=== PATIENT | female | born 1965 | race African-American/Black ===

== ENCOUNTER 2018-06-25 02:18 | Emergency (ER) | payer OTHER ==
[2018-06-25] MEDS ORDERED: SODIUM CHLORIDE FOR INHALATION 3 ML VIAL.NEB IH ONE (02:52)
[2018-06-25 02:53] VITALS: BP 109/71; PULSE 79; TEMP 98.2; BMI 30.7
--- NOTE | 2018-06-25 02:53 | PDOC ---
History of Present Illness - General Stated Complaint: COUGHING,RASH, WHEEZING Time Seen by Provider: 06/25/18 02:39 - History of Present Illness Initial Comments: 06/25/18 03:50 The patient is a 52 year old female, with a significant past medical history of MVP, who presents to the emergency department with 3 weeks of cough and wheezing. As per patient, she was exposed to mold at work. She [place] and states that [place] the [place] due to mold recently. Since finding out, she reports cough, wheezing, and increased anxiety and believes it may be due to the mold. She went to the Urgent Care at [facility] 2 weeks ago and was prescribed Benzonatate. She went to an unknown ER a few days later and was given 2 DuoNeb treatments and prescribed Prednisone for 5 days. She reports her symptoms have not subsided. She also reports noticing specks of brown blood in her sputum last week after a coughing episode. This has not occurred since. She has an appointment with a spool winder on Sunday 07/01. Pt reports last occupational PPD 1 month ago was negative. She denies recent fevers, chills, headache or dizziness. She denies recent nausea, vomit, diarrhea or constipation. She denies recent dysuria, frequency, urgency or hematuria. She denies recent chest pain. Allergies: Pneumococcal vaccine. Past surgical history: None reported. Social history: Nonsmoker. Denies EtOH use and recreational drug use. Past History - Past Medical History Allergies/Adverse Reactions: Allergies Allergy/AdvReac Type Severity Reaction Status Date / Time pneumococcal vaccine Allergy Severe Hives Verified 06/25/18 02:51 Home Medications: Ambulatory Orders Biotin 1 each PO DAILY 04/24/16 Cholecalciferol (Vitamin D3) [Vitamin D] 1 each PO DAILY 04/24/16 Cyanocobalamin [Vitamin B12 -] 1,000 mcg PO DAILY 04/24/16 Ferrous Gluconate [Iron] 325 mg PO DAILY 04/24/16 Meloxicam [Mobic] 1 each PO DAILY 04/24/16 Metoprolol Succinate [Toprol Xl -] 25 mg PO DAILY PRN 04/24/16 Multivitamins [Tab-A-Vit -] 1 tab PO DAILY 04/24/16 [place]-3 Fatty Acids [Fish Oil] 300 mg PO DAILY 07/19/16 Omeprazole 20 mg PO PRN PRN 04/24/16 Hydrocodone/Acetaminophen [Hydrocodon-Acetaminophen 5-300] 1 each PO DAILY PRN 04/30/16 Oxycodone HCl/Acetaminophen [Percocet 5-325 mg Tablet] 1 tab PO Q6H #20 tablet MDD 4 05/01/16 Anemia: Yes (HX OF) Asthma: No Cancer: No Cardiac Disorders: Yes (HX MVP AND PALPITATIONS-TAKES METOPROLOL PRN) CVA: No COPD: No CHF: No Dementia: No Diabetes: Yes (BORDERLINE) GI Disorders: Yes (HX OF GERD) Disorders: No HTN: No Hypercholesterolemia: No Liver Disease: No Seizures: No Thyroid Disease: No - Surgical History Abdominal Surgery: No Appendectomy: No Cardiac Surgery: No Cholecystectomy: Yes (2007) Lung Surgery: No Neurologic Surgery: No Orthopedic Surgery: Yes (LEFT ANKLE 2013) - Suicide/Smoking/Psychosocial Hx Smoking History: Former smoker Have you smoked in the past 12 months: No If you are a former smoker, when did you quit?: 1979 Hx Alcohol Use: Yes (SOCIAL) Drug/Substance Use Hx: No Hx Substance Use Treatment: No Review of Systems - Review of Systems Comments:: 06/25/18 04:01 GENERAL/CONSTITUTIONAL: No fever or chills. No weakness. HEAD, EYES, EARS, NOSE AND THROAT: No change in vision. No ear pain or discharge. No sore throat. GASTROINTESTINAL: No nausea, vomiting, diarrhea or constipation. GENITOURINARY: No dysuria, frequency, or change in urination. CARDIOVASCULAR: No chest pain or shortness of breath. +RESPIRATORY: Cough. Wheezing. One episode of hemoptysis, MUSCULOSKELETAL: No joint or muscle swelling or pain. No neck or back pain. SKIN: No rash NEUROLOGIC: No headache, vertigo, loss of consciousness, or change in strength/ sensation. ENDOCRINE: No increased thirst. No abnormal weight change. HEMATOLOGIC/LYMPHATIC: No anemia, easy bleeding, or history of blood clots. ALLERGIC/IMMUNOLOGIC: No hives or skin allergy. *Physical Exam - Physical Exam Comments: 06/25/18 04:01 GENERAL: Awake, alert, and fully oriented, in no acute distress HEAD: No signs of trauma EYES: PERRLA, EOMI, sclera anicteric, conjunctiva clear ENT: Auricles normal inspection, hearing grossly normal, nares patent, oropharynx clear without exudates. Moist mucosa NECK: Normal ROM, supple, no lymphadenopathy, JVD, or masses LUNGS: Breath sounds equal, clear to auscultation bilaterally. No wheezes, and no crackles HEART: Regular rate and rhythm, normal S1 and S2, no murmurs, rubs or gallops ABDOMEN: Soft, nontender, normoactive bowel sounds. No guarding, no rebound. No masses EXTREMITIES: Normal range of motion, no edema. No clubbing or cyanosis. No cords , erythema, or tenderness NEUROLOGICAL: Normal speech, cranial nerves intact, 5/5 strength in all 4 extremities, normal sensation to light touch in all 4 extremities, normal gait and tone SKIN: + pinpoint erythematous papule with no surrounding erythema, purulent DC, or ttp. Otherwise, warm, dry, normal turgor, no rashes or lesions noted. Medical Decision Making - Medical Decision Making 06/25/18 04:13 52yo F with no PMH presents to the ED with 3 weeks of coughing, wheezing. Vitals wnl. Exam wnl. Pt requesting confirmatory testing for mold exposure. Discussed with pt that we do not have this in the ED, but can offer a CXR and saline neb for symptomatic tx. Pt agrees with plan. 06/25/18 04:20 CXR clear on my read Pt feels better with saline neb WEll appearing Has pulm f/u Given strict return precations I discussed the physical exam findings, ancillary test results and final diagnoses with the patient. I answered all of the patient's questions. The patient was satisfied with the care received and felt comfortable with the discharge plan and treatment plan. The patient will call their primary care physician within 24 hours to arrange follow-up and will return to the Emergency Department with any new, persistent or worsening symptoms. *DC/Admit/Observation/Transfer Diagnosis at time of Disposition: Cough in adult - Discharge Dispostion Disposition: HOME Condition at time of disposition: Stable Decision to Admit order: No - Referrals - Patient Instructions Printed Discharge Instructions: DI for Cough -- Adult Additional Instructions: Follow-up with your spool winder next week as scheduled. Return to the emergency department if you have any new, worsening or concerning symptoms such as bleeding, worsening shortness of breath or chest pain. - Post Discharge Activity - Attestations Physician Attestion: 06/25/18 04:26 I, Dr. Wojciech Macdonald MD, attest that this document has been prepared under my direction and personally reviewed by me in its entirety. I further attest, that it accurately reflects all work, treatment, procedures and medical decision -making performed by me.
== END 2018-06-25 05:00 | disposition home or self-care (01) ==
LOC: JER 02:18
PROC: 3E0337Z Introduction of Electrolytic and Water Balance Substance into Peripheral Vein, Percutaneous Approach (ICD-10-PCS; principal; 2018-06-25)
DX: R05 Cough (principal); R73.03 Prediabetes; K21.9 Gastro-esophageal reflux disease without esophagitis; R00.2 Palpitations
CPT/HCPCS: 71046-TC-FY; 99281-25